=== PATIENT | male | born 1965 | race American Indian/Alaskan Native ===

== ENCOUNTER 2017-01-28 02:57 | Inpatient (IN) | payer OTHER ==
[2017-01-28] MEDS ORDERED: NACL 0.9% 1000 ML 1,000 ML IV ONE ×2 (03:29→05:31)
[2017-01-28 04:29] LABS: Hematocrit 51.1 % (35.5-45.6); Hemoglobin 17.5 gm/dl (11.8-15.2); Mean Corpuscular HGB Conc 34 % (32-34); Mean Corpuscular Hemoglobin 30 pg (28-32); Mean Corpuscular Volume 88 fl (84-94); Platelet Count 207 K/mm3 (140-440); Red Blood Count 5.81 M/mm3 (3.65-5.03); Red Cell Distribution Width 14.5 % (13.2-15.2); White Blood Count 9.7 K/mm3 (4.5-11.0)
[2017-01-28 04:43] LABS: Albumin 4.8 g/dL (3.9-5); BUN/Creatinine Ratio 9.28; Bilirubin,Total 0.5 mg/dL (0.1-1.2); Calcium 9.8 mg/dL (8.4-10.2); Chloride 89.1 mmol/L (98-107); Potassium 3.1 mmol/L (3.6-5.0); Total Protein 9.5 g/dL (6.3-8.2)
[2017-01-28 05:54] LABS: INR 1.05 (0.87-1.13)
[2017-01-28 05:55] LABS: Partial Thromboplastin Time 30.3 Sec. (24.2-36.6)
[2017-01-28] MEDS ORDERED: K-DUR PO ONE (06:15)
[2017-01-28 06:27] LABS: Basophils % (Manual) 0 % (0.0-1.8); Blastocytes % (Manual) 0 %; Diff Status Complete; Eosinophils % (Manual) 0 % (0.0-4.3); Platelet Estimate Consistent w Auto
[2017-01-28] MEDS ORDERED: PROTONIX IV ONE (06:44)
--- NOTE | 2017-01-28 06:44 | Emergency Department Report ---
HPI - General Chief Complaint: Abdominal Pain Time Seen by Provider: 01/28/17 06:14 - HPI HPI: This is a 51-year-old Afro-[place]ipino male who presents to the emergency department from home with complaint of copious diarrhea, black tarry stool, chills, body aches and some generalized weakness that has been going on and getting progressively worse since yesterday. The patient had a fever of 102 yesterday. The says that he was "talking deliriously" but is currently awake and lucid. He denies significant abdominal pain but says that he feels bloated and crampy. He tried some TheraFlu, Pat-[place] and a Imodium A-D without much relief. He does not have any past medical history but also does not have a primary care physician. No recent travel or sick contacts at home. ED Past Medical Hx - Past Medical History Previous Medical History?: No - Surgical History Past Surgical History?: No - Social History Smoking Status: Never Smoker Substance Use Type: None - Medications Home Medications: Home Medications Medication Instructions Recorded Confirmed Last Taken Type No Known Home Medications [No 01/28/17 01/28/17 Unknown History Reported Home Medications] ED Review of Systems ROS: Stated complaint: FEVER/ABD PAIN Other details as noted in HPI Comment: All other systems reviewed and negative Constitutional: denies: chills, fever Eyes: denies: eye pain, eye discharge, vision change ENT: denies: ear pain, throat pain Respiratory: denies: cough, shortness of breath, wheezing Cardiovascular: denies: chest pain, palpitations Gastrointestinal: abdominal pain, nausea, diarrhea, melena Genitourinary: denies: urgency, dysuria Musculoskeletal: denies: back pain, joint swelling, arthralgia Skin: denies: rash, lesions Neurological: denies: headache, weakness, paresthesias Physical Exam - Physical Exam Vital Signs: Vital Signs 01/28/17 01/28/17 03:25 05:28 Temperature 98.7 F Pulse Rate 142 H 133 H Respiratory 22 18 Rate Blood Pressure 147/87 Blood Pressure 114/59 [Right] O2 Sat by Pulse 96 97 Oximetry Physical Exam: GENERAL: The patient is well-developed well-nourished. HEENT: Normocephalic. Atraumatic. Extraocular motions are intact. Patient has moist mucous membranes. Pupils equal reactive to light bilaterally. NECK: Supple. Trachea is midline. CHEST/LUNGS: Clear to auscultation. There is no respiratory distress noted. HEART/CARDIOVASCULAR: Regular. There is mild to moderate tachycardia. There is no gallop rub or murmur. ABDOMEN: Abdomen is soft. Mild tenderness to palpation to the lower quadrants of the abdomen. No guarding rebound tenderness. Patient has normal bowel sounds. There is no abdominal distention. SKIN: Skin is warm and dry. NEURO: The patient is awake, alert, and oriented. The patient is cooperative. The patient has no focal neurologic deficits. The patient has normal speech. MUSCULOSKELETAL: There is no tenderness or deformity. There is no limitation range of motion. There is no evidence of acute injury. ED Course Vital Signs 01/28/17 01/28/17 03:25 05:28 Temperature 98.7 F Pulse Rate 142 H 133 H Respiratory 22 18 Rate Blood Pressure 147/87 Blood Pressure 114/59 [Right] O2 Sat by Pulse 96 97 Oximetry ED Medical Decision Making - Lab Data Result diagrams: 01/28/17 03:40 01/28/17 03:40 - Radiology Data Radiology results: report reviewed Renal ultrasound does not show any acute process. CT of the abdomen and pelvis without contrast shows subtle descending colitis and gastroenteritis. Small fat-containing umbilical hernia with a transverse neck a 1 cm and subadjacent nonobstructive small bowel loop. There is some rectosigmoid fluid. Small left hemipelvic phleboliths. Abdominal x-ray shows increased opacification suggesting ascites. No bowel obstruction. - Medical Decision Making 51-year-old male presents emergency Department with some abdominal discomfort, diarrhea that appeared to be dark stool. Patient presents with some tachycardia but otherwise his vital signs are stable including being afebrile. However he did have a fever Tmax 102 yesterday at home. Rectal exam did not show any hemorrhoids or masses and stool was negative for guaiac. However the patient has multiple abnormal labs but the most concerning is the acute kidney injury and/or renal failure. He says that there is no previous history of any renal insufficiency. Renal ultrasound was done that did not show any acute process. For the abdominal discomfort, a CT of the abdomen and pelvis without contrast was done that shows some subtle acentric colitis and otherwise some incidental findings but otherwise no obstruction or acute processes. He was started on some Zosyn, blood cultures obtained, and the patient will be admitted to the hospital for further evaluation. Patient was accepted for admission by the internal medicine LABORATORY MACHINIST, Thelma. - Differential Diagnosis diverticulitis, colitis, food poisoning, bowel obstruction Critical Care Time: No Critical care attestation.: If time is entered above; I have spent that time in minutes in the direct care of this critically ill patient, excluding procedure time. ED Disposition Clinical Impression: Acute kidney injury, Dehydration, Hyponatremia, Hypokalemia, Colitis Renal failure Qualifiers: Renal failure chronicity: acute Acute renal failure type: unspecified Qualified Code(s): N17.9 - Acute kidney failure, unspecified Diarrhea Qualifiers: Diarrhea type: unspecified type Qualified Code(s): R19.7 - Diarrhea, unspecified Disposition: -09 OP ADMIT IP TO THIS HOSP Is pt being admited?: Yes Condition: Stable Referrals: PRIMARY CARE, [Primary Care Provider] - 3-5 Days Time of Disposition: 11:13
[2017-01-28] MEDS ORDERED: MORPHINE ONE (07:35)
[2017-01-28] MEDS ORDERED: MORPHINE IV ONE (07:36)
--- NOTE | 2017-01-28 08:13 | XRay Report ---
ABDOMEN TWO VIEWS: 01/28/17 06:42:00 CLINICAL: Abdominal pain. COMPARISON:None. FINDINGS: Supine upright views demonstrate a normal bowel gas pattern. No distended bowel and no air-fluid levels. There is increased opacification of the abdomen suggesting ascites. No mass or suspicious calcifications. No tubes or lines. The bones and soft tissues are normal. IMPRESSION: Increased opacification suggesting ascites. No bowel obstruction.
--- NOTE | 2017-01-28 08:16 | Ultrasound Report ---
ULTRASOUND RENAL INDICATION: STEPHEN. COMPARISON: None similar. FINDINGS: Renal sonography suggests top normal renal cortical echogenicity. Grossly preserved contours. No hydronephrosis. Slightly coarse imaged liver. RIGHT KIDNEY measures 9.9 x 4.6 x 5.6 cm with cortical thickness of 1.8 cm. LEFT KIDNEY estimated at 10.7 x 6 x 6.2 cm with cortical thickness of 2.1 cm. URINARY BLADDER suboptimally distended and assessed, though grossly unremarkable, in so far seen. CONCLUSION: No acute renal sonographic abnormality, as described. Thank you for the opportunity to participate in this patient's care.
--- NOTE | 2017-01-28 08:33 | Admit Criteria Form ---
Admission Criteria Documentation: GASTROENTEROLOGY GRG Clinical Indications for Admission to Inpatient Care (Place 'X' for any and all applicable criteria): Hospital admission is needed for appropriate care of the patient because of ANY ONE of the following: [ ]I. Hemoperitoneum(7) [ ]II. Ascites requiring acute treatment indicated by ANY ONE of the following( 8)(9): [ ]a) Hemodynamic instability remaining after emergency or observation level care (as appropriate) [ ]b) Peritoneal signs present (eg, abdominal rigidity, rebound tenderness, absent bowel sounds) [ ]c) Tachypnea, Hypoxemia, or other respiratory symptoms remain after emergency or observation level care (as appropriate) [ ]d) Suspected infected ascites as indicated by ANY ONE of the following: [ ]i) Temperature greater than 100 degrees F (37.8 degrees C) [ ]ii) Abdominal pain or tenderness not relieved by paracentesis [ ]iii) Systemic signs of infection (eg, elevated WBC count, fever) [ ]iv) Ascitic fluid analysis consistent with infection ( eg, elevated WBC count): [ ]v) Vital sign abnormality [ ]III. Suspected acute intra-abdominal process indicated by ANY ONE of the following(1)(2)(3)(4)(5): [ ]a) Hemodynamic instability [ ]b) Peritoneal signs present (eg, abdominal rigidity, rebound tenderness, absent bowel sounds) [ ]c) Bowel obstruction suspected (eg, severe vomiting, abdominal distension) [ ]d) Suspected mesenteric ischemia or ischemic colitis(6) [ ]e) Other signs or symptoms of acute abdominal disease (eg, severe pain, free air): [ ]IV. Severe liver disease indicated by ANY ONE of the following(8)(9)(10)(11)( 12)(13)(14): [ ]a) Acute hepatitis (eg, transaminase level greater than 1000 IU/L) [ ]b) Acute elevation of prothrombin time to more than 50% above normal or INR greater than 1.5 [ ]c) Bilirubin greater than 20 mg/dL (342 micromoles/L) (15) [ ]d) New-onset or worsening hepatic encephalopathy [ ]e) Acute liver necrosis [ ]f) Vomiting or dehydration that is severe of persistent [ ]g) Hemodynamic instability due to liver disease [ ]h) Acute renal failure [ ]i) Hepatic abscess [ ]j) Dehydration that is severe or persistent [ ]k) Hepatic hydrothorax(21) [ ]l) Other indications of severe liver disease (eg, persistent fever , ingestion of hepatotoxin) [ X]V. Severe diarrhea indicated by ANY ONE of the following(17)(18)(19)(20)(21) (22)(23): [ ]a) High fever or other high-risk infection situation [ ]b) Intractable bloody diarrhea (eg, more than 6 bloody stools per day) [ ]c) Suspected Clostridium difficile-associated diarrhea(24) [ ]d) Change in mental status that persists after emergency or observation level care (as appropriate) [X ]e) Severe dehydration (eg, greater than 9% loss of body weight in children) [ ]f) Inability to maintain hydration [ ]g) Peritoneal signs present (eg, abdominal rigidity, rebound tenderness, absent bowel sounds) [ ]h) Abdominal ischemia suspected(6) [ ]i) Hemodynamic instability that persists after emergency or observation level care (as appropriate) [ ]j) Severe electrolyte abnormalities requiring inpatient care [X ]k) Acute renal failure [ ]. Suspected toxic megacolon(5)(6) [ ]VII.Severe dysphagia indicated by ANY ONE of the following(25)(26): [ ]a) Suspected esophageal perforation or fistula(27) [ ]b) Suspected cause that requires inpatient care (eg, caustic ingestion, severe esophagitis) (28) [ ]c) Severe dehydration (eg, greater than 9% loss of body weight in children) [ ]d) Inability to manage secretions or maintain hydration [ ]e) Hemodynamic instability that persists after emergency or observation level care (as appropriate) [ ]f) Severe electrolyte abnormalities requiring inpatient care [ ]g) Acute renal failure [ ]VIII.Vomiting and ANY ONE of the following (29)(30)(31)(32): [ ]a) High fever or other high-risk infection situation [ ]b) Change in mental status that persists after emergency or observation level care (as appropriate) [ ]c) Severe dehydration (e.g., greater than 9% loss of body weight in children) [ ]d) Peritoneal signs present (e.g., abdominal rigidity, rebound tenderness, absent bowel sounds) [ ]e) Hemodynamic instability that persists after emergency or observation level care (as appropriate) [ ]f) Severe electrolyte abnormalities requiring inpatient care [ ]g) Acute renal failure [ ]h) Bowel obstruction suspected (e.g., severe vomiting, abdominal distension) [ ]i) Vomiting that is severe or persistent after medical treatment [ ]IX. Significant dehydration indicated by ANY ONE of the following(23)(24)(25) [ ]a) Clinical findings of severe dehydration indicated by ANY ONE of the following: [ ]i) Acute loss of weight from baseline (5% of body weight in adults, 9% in pediatric patients) [ ]ii) Hemodynamic instability [ ]iii) Acute renal failure [ ]iv) Serum sodium greater than 150 mEq/L (mmol/L) [ ]b) Dehydration that is persistent indicated by ALL of the following: [ ]i) Oral rehydration therapy not tolerated or insufficient to adequately correct dehydration [ ]ii) Appropriate intravenous treatment (eg, fluids) does not readily correct dehydration hours of (ie, after 12 to 24 of treatment) [ ]X. Gastroparesis and ANY ONE of the following(37)(38)(39): [ ]a) Dehydration that is severe or persistent [ ]b) Severe electrolyte abnormalities requiring inpatient care [ ]c) Acute renal failure [ ]d) Vomiting that is severe or persistent [ ]XI. Complications of transplanted liver indicated by ANY ONE of the following (40)(41): [ ]a) Acute graft rejection requiring inpatient management (eg, intravenous immunosuppression)(42) [ ]b) Failure of transplanted liver as indicated by ANY ONE of the following: [ ]i) Acute hepatitis (eg, transaminase level greater than 1000 International Units per liter (IU/L)) [ ]ii) Acute elevation of prothrombin time to more than 50% above baseline or INR greater than 1.5 [ ]iii) Bilirubin greater than 20 mg/dL (342 micromoles/L) [ ]iv) New-onset or worsening hepatic encephalopathy [ ]v) Acute elevation of serum ammonia level (eg, greater than 210 mcg/dL (150 micromoles/L)) [ ]vi) Acute liver necrosis [ ]c) Infection requiring inpatient management (eg, Hemodynamic instability, need for intravenous antimicrobial treatment)(43)(44)(45)(46)(47)(48)(49)(50) [ ]d) Other complication of transplanted liver (eg, thrombosis, autoimmune hepatitis, variceal bleeding) requiring inpatient management(51)(52) [ ]XII Complications of transplanted pancreas indicated by ANY ONE of the following(53): [ ]a) Acute graft rejection requiring inpatient management (eg, intravenous immunosuppression)(42)(54) [ ]b) Failure of transplanted pancreas as indicated by ANY ONE of the following: [ ]i) Serum amylase greater than 3 times the upper limit of normal or baseline [ ]ii) Serum lipase greater than 3 times the upper limit of normal or baseline [ ]iii) Imaging findings consistent with pancreatic inflammation or necrosis [ ]c) Infection requiring inpatient management (eg, Hemodynamic instability, need for intravenous antimicrobial treatment)(43)(44)(45)(46)(47)(48)(49)(50) [ ]d) Other complication of transplanted liver (eg, thrombosis, autoimmune hepatitis, variceal bleeding) requiring inpatient management(51)(52) [ ]X. Gastroenterology condition and ALL of the following: [ ]a) Symptom or finding for which emergency and observation care have failed or are not considered appropriate (Also use General Criteria: Observation Care as appropriate) [ ]b) Presence of ANY ONE of the following: [ ]i) A General Admission Criteria [ ]ii) A Pediatric General Admission Criteria. The original [facility] [employer] content created by [employer] has been revised. The portions of the content which have been revised are identified through the use of italic text or in bold,and [facility] has neither reviewed nor approved the modified material. All other unmodified content is copyright [facility]. Please see references footnoted in the original [facility] edition 2016 Admission Criteria Met: Yes
--- NOTE | 2017-01-28 10:09 | Cat Scan Report ---
CT ABDOMEN AND PELVIS WITHOUT CONTRAST INDICATION: Abdominal pain. COMPARISON: None similar. FINDINGS: Noncontrast abdomen and pelvis CT performed. LUNG BASES: Normal heart size. No effusions. Right hemidiaphragm slightly elevated. Nonspecific distal esophageal wall prominence/thickening, not excluded for gastroesophageal reflux and/or hiatal hernia, amongst others. ABDOMEN: Please note that sensitivity to detect small visceral lesions is limited due to the absence of intravenous or oral contrast. Liver density slightly lesser than the spleen. Otherwise grossly unremarkable unenhanced liver, spleen, gallbladder, pancreas, adrenals, nonaneurysmal abdominal aorta with few atherosclerotic calcifications, IVC and kidneys. No ascites or size significant adenopathy with few small, subcentimeter mesenteric and retroperitoneal lymph nodes. Nonopacified GI tract evaluation limited, though grossly nonobstructive. Normal appendix. Mid to distal small bowel as also colon fluid filled, though not abnormally distended. Subtle proximal ascending colon surrounding fat stranding as on axial images 170-270, series 2. Small fat containing umbilical hernia with a transverse neck of 1 cm and a subjacent nonobstructive small bowel loop. PELVIS: Rectosigmoid fluid. Grossly unremarkable non-opacified urinary bladder and unenhanced seminal vesicles and prostate. Small left hemipelvic phlebolith. No free fluid or significant adenopathy. Approximately 4 mm retrolisthesis of L5 over S1 with degenerative spurring, moderate disc narrowing and mild vacuum disc phenomenon. Additional slight imaged spinal degenerative changes. CONCLUSION: 1. CT appearance may represent subtle ascending colitis and gastroenteritis in an appropriate clinical setting. Please correlate. 2. Few other incidental findings, including normal appendix, as above. Thank you for the opportunity to participate in this patient's care.
[2017-01-28] MEDS ORDERED: ZOSYN/NS 4.5GM/100ML 4.5 GM/100 ML VIAL IV ONE ×2 (10:14→11:35)
[2017-01-28] MEDS ORDERED: MILK OF MAGNESIA PO PRN (11:08)
[2017-01-28] MEDS ORDERED: DULCOLAX PR PRN (11:08)
[2017-01-28] MEDS ORDERED: TYLENOL PO PRN (11:08)
[2017-01-28] MEDS ORDERED: ZOFRAN IV PRN (11:08)
--- NOTE | 2017-01-28 11:32 | History and Physical Report ---
History of Present Illness Date of examination: 01/28/17 Date of admission: 01/28/17 Chief complaint: Abdominal pain and diarrhea History of present illness: 51-year-old -Maltese male with no significant past medical hx who presented to the ED with complaints of black colored copious diarrhea and nausea 4 days. Patient patient is lethargic and is a poor historian. Patient' s Fiancee, reported Pt's symptoms started Thursday with upset stomach, chills, black tarry stool and fever. this was also experinced by a co-worker (they are reconstructing an old home0 Pt got worse yesterday, he was talking and did not make any sense. She also indicated, the patient took TheraFlu flu on Thursday, Imodium A-D twice yesterday and no relief. Pt's fiance reported patient has no significant past medical history except for high cholesterol and he is not on any medication at this time. Past History Past Medical History: No medical history, hyperlipidemia (Pt not on any meds) Past Surgical History: No surgical history Social history: single, lives with family, smoking (Quit smoking cigarettes x 20yrs ago. Smokes marijuana), alcohol abuse (a beer on occasion), full code. denies: prescription drug abuse, IV drug use Family history: stroke (Brother) Medications and Allergies Allergies Allergy/AdvReac Type Severity Reaction Status Date / Time No Known Allergies Allergy Verified 01/28/17 03:29 Home Medications Medication Instructions Recorded Confirmed Last Taken Type No Known Home Medications [No 01/28/17 01/28/17 Unknown History Reported Home Medications] Active Meds: Active Medications Acetaminophen (Tylenol) 650 mg PO Q4H PRN PRN Reason: Pain MILD(1-3)/Fever >100.5/MILLER Bisacodyl (Dulcolax) 10 mg [place] QDAY PRN PRN Reason: Constipation unrelieved by MOM Sodium Chloride (Nacl 0.9% 1000 Ml) 1,000 mls @ 100 mls/hr IV DIRECT BERTHA Magnesium Hydroxide (Milk Of Magnesia) 30 ml PO Q4H PRN PRN Reason: Constipation Ondansetron HCl (Zofran) 4 mg IV Q8H PRN PRN Reason: N/V unrelieved by Reglan Review of Systems ROS unobtainable: due to mental status (Pt's alexandre provided information) Constitutional: no weight loss, no weight gain, no fever, no chills Ears, nose, mouth and throat: nasal congestion, headache Respiratory: no cough Gastrointestinal: nausea, diarrhea (black stool per pt's Fiancee), no vomiting, no constipation Genitourinary Male: no hematuria Integumentary: no sores, no wounds Exam - Constitutional Vitals: Temp Pulse Resp BP Pulse Ox 98.7 F 122 H 15 113/70 99 01/28/17 03:25 01/28/17 09:02 01/28/17 09:02 01/28/17 09:02 01/28/17 09:02 General appearance: Present: mild distress - EENT Eyes: Present: PERRL ENT: hearing intact, clear oral mucosa - Neck Neck: Present: supple, normal ROM - Respiratory Respiratory effort: normal Respiratory: bilateral: CTA - Cardiovascular Rhythm: regular Heart Sounds: Present: S1 & S2. Absent: rub, click - Extremities Extremities: pulses symmetrical, No edema Peripheral Pulses: within normal limits - Abdominal General gastrointestinal: Present: soft, non-tender, non-distended, hypoactive bowel sounds Male genitourinary: Present: normal - Integumentary Integumentary: Present: warm, dry - Musculoskeletal Musculoskeletal: generalized weakness - Psychiatric Psychiatric: other (Lethargic) - Neurologic Neurologic: moves all extremities - Allied Health Allied health notes reviewed: nursing Results - Labs CBC & Chem 7: 01/28/17 15:14 01/28/17 15:14 Labs: Laboratory Last Values WBC 9.7 K/mm3 (4.5-11.0) 01/28/17 03:40 RBC 5.81 M/mm3 (3.65-5.03) H 01/28/17 03:40 Hgb 17.5 gm/dl (11.8-15.2) H 01/28/17 03:40 Hct 51.1 % (35.5-45.6) H 01/28/17 03:40 MCV 88 fl (84-94) 01/28/17 03:40 MCH 30 pg (28-32) 01/28/17 03:40 MCHC 34 % (32-34) 01/28/17 03:40 RDW 14.5 % (13.2-15.2) 01/28/17 03:40 Plt Count 207 K/mm3 (140-440) 01/28/17 03:40 Add Manual Diff Complete 01/28/17 03:40 Total Counted 100 01/28/17 03:40 Seg Neuts % (Manual) 34.0 % (40.0-70.0) L 01/28/17 03:40 Band Neutrophils % 30.0 % 01/28/17 03:40 Lymphocytes % (Manual) 24.0 % (13.4-35.0) 01/28/17 03:40 Reactive Lymphs % (Man) 1.0 % 01/28/17 03:40 Monocytes % (Manual) 11.0 % (0.0-7.3) H 01/28/17 03:40 Eosinophils % (Manual) 0 % (0.0-4.3) 01/28/17 03:40 Basophils % (Manual) 0 % (0.0-1.8) 01/28/17 03:40 Metamyelocytes % 0 % 01/28/17 03:40 Myelocytes % 0 % 01/28/17 03:40 Promyelocytes % 0 % 01/28/17 03:40 Blast Cells % 0 % 01/28/17 03:40 Nucleated RBC % Not Reportable 01/28/17 03:40 Seg Neutrophils # Man 3.3 K/mm3 (1.8-7.7) 01/28/17 03:40 Band Neutrophils # 2.9 K/mm3 01/28/17 03:40 Lymphocytes # (Manual) 2.3 K/mm3 (1.2-5.4) 01/28/17 03:40 Abs React Lymphs (Man) 0.1 K/mm3 01/28/17 03:40 Monocytes # (Manual) 1.1 K/mm3 (0.0-0.8) H 01/28/17 03:40 Eosinophils # (Manual) 0.0 K/mm3 (0.0-0.4) 01/28/17 03:40 Basophils # (Manual) 0.0 K/mm3 (0.0-0.1) 01/28/17 03:40 Metamyelocytes # 0.0 K/mm3 01/28/17 03:40 Myelocytes # 0.0 K/mm3 01/28/17 03:40 Promyelocytes # 0.0 K/mm3 01/28/17 03:40 Blast Cells # 0.0 K/mm3 01/28/17 03:40 WBC Morphology Not Reportable 01/28/17 03:40 Hypersegmented Neuts Not Reportable 01/28/17 03:40 Hyposegmented Neuts Not Reportable 01/28/17 03:40 Hypogranular Neuts Not Reportable 01/28/17 03:40 Smudge Cells Not Reportable 01/28/17 03:40 Toxic Granulation Not Reportable 01/28/17 03:40 Toxic Vacuolation Not Reportable 01/28/17 03:40 Dohle Bodies Not Reportable 01/28/17 03:40 Pelger-Huet Anomaly Not Reportable 01/28/17 03:40 Michel Rods Not Reportable 01/28/17 03:40 Platelet Estimate Consistent w auto 01/28/17 03:40 Clumped Platelets Not Reportable 01/28/17 03:40 Plt Clumps, EDTA Not Reportable 01/28/17 03:40 Large Platelets Not Reportable 01/28/17 03:40 Giant Platelets Not Reportable 01/28/17 03:40 Platelet Satelliting Not Reportable 01/28/17 03:40 Plt Morphology Comment Not Reportable 01/28/17 03:40 RBC Morphology Not Reportable 01/28/17 03:40 Dimorphic RBCs Not Reportable 01/28/17 03:40 Polychromasia Not Reportable 01/28/17 03:40 Hypochromasia Not Reportable 01/28/17 03:40 Poikilocytosis Not Reportable 01/28/17 03:40 Anisocytosis Not Reportable 01/28/17 03:40 Microcytosis Not Reportable 01/28/17 03:40 Macrocytosis Not Reportable 01/28/17 03:40 Spherocytes Not Reportable 01/28/17 03:40 Pappenheimer Bodies Not Reportable 01/28/17 03:40 Sickle Cells Not Reportable 01/28/17 03:40 Target Cells Not Reportable 01/28/17 03:40 Tear Drop Cells Not Reportable 01/28/17 03:40 Ovalocytes Not Reportable 01/28/17 03:40 Helmet Cells Not Reportable 01/28/17 03:40 Lopez-Wagoner Bodies Not Reportable 01/28/17 03:40 [place] Rings Not Reportable 01/28/17 03:40 [place] Cells Not Reportable 01/28/17 03:40 Bite Cells Not Reportable 01/28/17 03:40 Crenated Cell Not Reportable 01/28/17 03:40 Elliptocytes Not Reportable 01/28/17 03:40 Acanthocytes (Spur) Not Reportable 01/28/17 03:40 Rouleaux Not Reportable 01/28/17 03:40 Hemoglobin C Crystals Not Reportable 01/28/17 03:40 Schistocytes Not Reportable 01/28/17 03:40 Malaria parasites Not Reportable 01/28/17 03:40 Anant Bodies Not Reportable 01/28/17 03:40 Hem Pathologist Commnt No 01/28/17 03:40 PT 13.6 Sec. (12.2-14.9) 01/28/17 03:40 INR 1.05 (0.87-1.13) 01/28/17 03:40 APTT 30.3 Sec. (24.2-36.6) 01/28/17 03:40 Sodium 129 mmol/L (137-145) L 01/28/17 03:40 Potassium 3.1 mmol/L (3.6-5.0) L 01/28/17 03:40 Chloride 89.1 mmol/L (98-107) L 01/28/17 03:40 Carbon Dioxide 16 mmol/L (22-30) L 01/28/17 03:40 Anion Gap 27 mmol/L 01/28/17 03:40 BUN 26 mg/dL (9-20) H 01/28/17 03:40 Creatinine 2.8 mg/dL (0.8-1.5) H 01/28/17 03:40 Estimated GFR 29 ml/min 01/28/17 03:40 BUN/Creatinine Ratio 9.28 % 01/28/17 03:40 Glucose 138 mg/dL (75-100) H 01/28/17 03:40 Calcium 9.8 mg/dL (8.4-10.2) 01/28/17 03:40 Total Bilirubin 0.50 mg/dL (0.1-1.2) 01/28/17 03:40 AST 31 units/L (5-40) 01/28/17 03:40 ALT 28 units/L (7-56) 01/28/17 03:40 Alkaline Phosphatase 72 units/L (35-129) 01/28/17 03:40 Total Protein 9.5 g/dL (6.3-8.2) H 01/28/17 03:40 Albumin 4.8 g/dL (3.9-5) 01/28/17 03:40 Albumin/Globulin Ratio 1.0 % 01/28/17 03:40 Lipase 36 units/L (13-60) 01/28/17 03:40 Blood Type B POSITIVE 01/28/17 03:40 Antibody Screen TNR 01/28/17 03:40 ZEENAT Antibody Screen Negative 01/28/17 03:40 - Imaging and Cardiology EKG: image reviewed (Showed Sinus Tach) CT scan - abdomen: image reviewed (ascending colitis) Assessment and Plan Assessment and plan: 51-year-old -Maltese male presented to the ED with complaints of black colored copious diarrhea and nausea 4 days. Patient patient is lethargic and is a poor historian. Patient's Fiancee, reported Pt's symptoms started Thursday with upset stomach, chills, black tarry stool and fever. Pt got worse yesterday , he was talking and did not make any sense. She also indicated, the patient took TheraFlu flu on Thursday, Imodium A-D twice yesterday and no relief. Pt's fiance reported patient has no significant past medical history except for high cholesterol and he is not on any medication at this time. On exam, patient denies chest pain. 1. Metabolic encephalopathy- resolved secondary to Acute GI bleed and acute kidney injury- treat underlying causes 2. Abdominal pain, POSSIBLE COLITIS, WILL START ON FLUIDS, CHECK STOOL FOR C.DIFF. START EMPIRICALLY ON FLAGYL 3. Acute GI bleed-consult GI, serial H/H, IV Protonix ordered, transfuse PRBC when necessary 4. Acute renal failure stage III-due to vasomotor nephropathy, consult nephrology 5. Dehydration- continuous IV fluids hydration and follow up with labs 6. Hypokalemia- replete potassium to maintain approximate 4.0, follow up with Potassium and Mg level 7. Hyponatremia- normal saline IV fluids ordered 8. Diarrhea- stool to rule out C. difficile, follow-up with labs to maintain electrolytes balance 9. DVT prophylaxis- SCDs ordered PLAN DISCUSSED WITH PATIENT AND SPOUSE Advance Directives: No (Full code) VTE prophylaxis?: Mechanical Contraindication Mechanical VTE Prophylaxis: Contraindicated Reason for no VTE Prophylaxis: Bleeding Plan of care discussed with patient/family: Yes
--- NOTE | 2017-01-28 13:07 | Gastroenterology Consultation ---
History of Present Illness - Reason for Consult Consult date: 01/28/17 Requesting physician: CARMEN MILLER - History of Present Illness The patient is a 51-year-old man with no prior problems who felt well until days ago when he began having severe diarrhea, high fevers, abdominal cramping and nausea with vomiting. His emesis was bilious although he reports having dark stools. The patient's girlfriend states that he was delirious yesterday with fevers. His stool was Hemoccult negative on ER evaluation. Consultation was requested for possible GI bleeding given the patient's history. He has acute renal failure and a hemoglobin of 17.5. The patient reports fast food on the day that the symptoms began and reports that another individual eating from the same restaurant and working with him became ill. He had a colonoscopy 4 years ago which he reports was normal. He does not see a physician regularly and is on no routine medications. He was taking [place] to help with his symptoms. He did not use Pepto-Bismol and does not take iron. Past History Past Medical History: No medical history Past Surgical History: No surgical history Social history: single. denies: smoking, alcohol abuse Family history: no significant family history Medications and Allergies Allergies Allergy/AdvReac Type Severity Reaction Status Date / Time No Known Allergies Allergy Verified 01/28/17 03:29 Home Medications Medication Instructions Recorded Confirmed Last Taken Type No Known Home Medications [No 01/28/17 01/28/17 Unknown History Reported Home Medications] Active Meds: Active Medications Acetaminophen (Tylenol) 650 mg PO Q4H PRN PRN Reason: Pain MILD(1-3)/Fever >100.5/MILLER Bisacodyl (Dulcolax) 10 mg [place] QDAY PRN PRN Reason: Constipation unrelieved by [facility] Sodium Chloride (Nacl 0.9% 1000 Ml) 1,000 mls @ 100 mls/hr IV DIRECT BERTHA Magnesium Hydroxide (Milk Of Magnesia) 30 ml PO Q4H PRN PRN Reason: Constipation Ondansetron HCl (Zofran) 4 mg IV Q8H PRN PRN Reason: N/V unrelieved by Reglan Pneumococcal Polyvalent Vaccine (Pneumovax 23) 0.5 ml IM .ONCE ONE Stop: 01/29/17 12:01 Review of Systems - Review of Systems Constitutional: fever, chills, weakness, no weight loss, no weight gain Eyes: no change in vision, no pain Ears, Nose, Throat: no decreased hearing, no epistaxis Breasts: deferred Cardiovascular: no chest pain, no rapid/irregular heart beat, no shortness of breath, no syncope Respiratory: no cough, no shortness of breath, no wheezing, no home oxygen Gastrointestinal: abdominal pain, nausea, vomiting, diarrhea, melena, no constipation, no hematemesis, no coffee ground emesis Rectal: pain Male Genitourinary: deferred Musculoskeletal: no gait dysfunction, no joint pain, no muscle pain Integumentary: no rash, no pruritis, no jaundice Psychiatric: no anxiety, no memory loss Endocrine: no cold intolerance, no heat intolerance Hematologic/Lymphatic: no easy bruising, no easy bleeding Allergic/Immunologic: no wheezing, no angioedema Exam - Constitutional Vital Signs: Temp Pulse Resp BP Pulse Ox 98.7 F 122 H 14 113/70 99 01/28/17 03:25 01/28/17 09:02 01/28/17 11:29 01/28/17 11:29 01/28/17 09:02 General appearance: no acute distress, well-nourished - EENT Eyes: PERRL ENT: hearing intact, clear oral mucosa, dentition normal - Neck Neck: supple, normal ROM, no masses or JVD - Respiratory Respiratory effort: normal Respiratory: bilateral: CTA - Breasts Breasts: deferred - Cardiovascular Rhythm: regular Heart Sounds: Present: S1 & S2. Absent: gallop, rub Extremities: pulses intact, No edema, normal color, Full ROM - Gastrointestinal General gastrointestinal: Present: soft, non-tender, non-distended. Absent: hepatomegaly, splenomegaly, mass Rectal Exam: deferred - Genitourinary Male Genitourinary: deferred - Integumentary Integumentary: Present: clear, warm, dry - Neurologic Neurological: alert and oriented x3 - Psychiatric Psychiatric: appropriate mood/affect, intact judgment & insight, memory intact - Labs CBC & Chem 7: 01/28/17 03:40 01/28/17 03:40 Assessment and Plan - Patient Problems (1) Acute gastroenteritis Current Visit: Yes Status: Acute Plan to address problem: The patient appears to have a severe acute gastroenteritis associated with profound dehydration. His nausea has resolved and he is requesting fluids. There is no significant bleeding evident. The stool is Hemoccult negative and his hemoglobin is 17.5. Endoscopy can be safely deferred and the patient will be observed. Stool cultures and C. difficile toxin will be ordered. Supportive care otherwise. Thank you very much for asking me to see Mr. Hernandez in consultation (2) Colitis Current Visit: Yes Status: Acute (3) Dehydration Current Visit: Yes Status: Acute (4) Diarrhea Current Visit: Yes Status: Acute Qualifiers: Diarrhea type: unspecified type Qualified Code(s): R19.7 - Diarrhea, unspecified (5) Hyponatremia Current Visit: Yes Status: Acute (6) Renal failure Current Visit: Yes Status: Acute Qualifiers: Renal failure chronicity: acute Acute renal failure type: unspecified Chronic kidney disease stage: C Qualified Code(s): N17.9 - Acute kidney failure, unspecified
[2017-01-28] MEDS ORDERED: D50W (25GM) IV PRN (15:14)
[2017-01-28] MEDS: NACL 0.9% 1000 ML 1,000 ML IV SCH (15:15)
[2017-01-28 15:25] LABS: Hemoglobin 16.3 gm/dl (11.8-15.2)
[2017-01-28] MEDS: FLAGYL PO SCH ×2 (15:42→21:30)
[2017-01-28 15:46] LABS: BUN/Creatinine Ratio 11.66; Calcium 8.9 mg/dL (8.4-10.2); Chloride 93.6 mmol/L (98-107); Potassium 3.1 mmol/L (3.6-5.0)
[2017-01-28] MEDS ORDERED: NOVOLOG SUB-Q SCH (16:30)
[2017-01-28 16:44] LABS: Bacteria,Urine 3+ /HPF (Negative); Bilirubin,Urine MOD (Negative); Blood,Urine LG (Negative); Ketones,Urine NEG (Negative); Leukocyte Esterase,Urine LG (Negative); Mucus,Urine 3+ /HPF; Nitrite,Urine POS (Negative); Urobilinogen,Urine < 2.0 mg/dL (<2.0)
[2017-01-28 16:45] LABS: RBC,Urine > 182.0 /HPF (0.0-6.0)
[2017-01-29] MEDS: NACL 0.9% 1000 ML 1,000 ML IV SCH ×3 (04:13→22:28)
[2017-01-29] MEDS: FLAGYL PO SCH ×3 (06:12→22:28)
[2017-01-29 07:33] LABS: Hematocrit 49.1 % (35.5-45.6); Hemoglobin 16.7 gm/dl (11.8-15.2); Mean Corpuscular HGB Conc 34 % (32-34); Mean Corpuscular Hemoglobin 30 pg (28-32); Mean Corpuscular Volume 89 fl (84-94); Platelet Count 172 K/mm3 (140-440); Red Blood Count 5.52 M/mm3 (3.65-5.03); Red Cell Distribution Width 14.3 % (13.2-15.2); White Blood Count 6.6 K/mm3 (4.5-11.0)
[2017-01-29 07:39] LABS: BUN/Creatinine Ratio 16.31; Calcium 8.8 mg/dL (8.4-10.2); Chloride 99.3 mmol/L (98-107); Potassium 3.2 mmol/L (3.6-5.0)
[2017-01-29 09:28] LABS: Basophils % (Manual) 0 % (0.0-1.8); Blastocytes % (Manual) 0 %; Eosinophils % (Manual) 0 % (0.0-4.3)
[2017-01-29 09:29] LABS: Diff Status Complete; RBC Morphology Normal
[2017-01-29] MEDS ORDERED: PROTONIX IV SCH (10:00)
[2017-01-29] MEDS ORDERED: PNEUMOVAX 23 IM ONE (12:00)
--- NOTE | 2017-01-29 12:02 | Progress Note ---
Assessment and Plan Assessment and plan: Patient is a 51-year-old man w/o any chronic medical problems who presents with nausea and diarrhea. CT abdomen and pelvis without contrast reported as subtle ascending colitis and gastroenteritis in an appropriate clinical setting, please correlate, with few other incidential findings... -Sepsis due to colitis, present on admission: Blood culture pending, GI following, on flagyl, given iv zosyn in ED on admission -UTI, present on admission: Added urine culture but he was already started on antibiotics, add sq levaquin -Diarrhea: C. difficile pending, I spoke to the lab who never got the sample yesterday then I spoke with nursing to re-collect -ARF, renal tubule stasis, poa, improved, cr went from 2.4 to 1.9: continue to monitor -Hypokalemia due to diarrhea: Replace and monitor closely -DVT prophylaxis: added sq heparin History Interval history: Patient seen and examined. Follow up on diarrhea which is still present. Overnight uneventful. No cp, sob, n/v or severe headaches. Imaging, old records , testing, labs, nursing notes reviewed. Hospitalist Physical - Physical exam Narrative exam: GEN: WDWN, NAD, AWAKE, ALERT, ORIENTATED x 3 HEENT: NCAT, PERRL, EOMI, OP CLEAR NECK: SUPPLE, NO THYROMEGALY, NO JVD, NO LAD CVS: Regular tachycardia, NORMAL S1S2 LUNGS/CHEST: CTA B, NORMAL CHEST EXPANSION B, GOOD AIR ENTRY B ABD: SOFT, NTND, GBS, NO REBOUND OR GUARDING MSK: FROM X 4 EXTREMITIES NEURO: CN 2-12 GROSSLY INTACT, NO FOCAL DEFICITS PSY: CALM - Constitutional Vitals: Temp Pulse Resp BP Pulse Ox 98.6 F 101 H 20 118/81 98 01/29/17 05:07 01/29/17 08:16 01/29/17 10:00 01/29/17 05:07 01/29/17 10:00 General appearance: Absent: mild distress Results - Labs CBC & Chem 7: 01/29/17 07:03 01/29/17 07:03 Labs: Laboratory Last Values WBC 6.6 K/mm3 (4.5-11.0) 01/29/17 07:03 RBC 5.52 M/mm3 (3.65-5.03) H 01/29/17 07:03 Hgb 16.7 gm/dl (11.8-15.2) H 01/29/17 07:03 Hct 49.1 % (35.5-45.6) H 01/29/17 07:03 MCV 89 fl (84-94) 01/29/17 07:03 MCH 30 pg (28-32) 01/29/17 07:03 MCHC 34 % (32-34) 01/29/17 07:03 RDW 14.3 % (13.2-15.2) 01/29/17 07:03 Plt Count 172 K/mm3 (140-440) 01/29/17 07:03 [place] % (Auto) Sales Administration Specialist 01/29/17 07:03 Add Manual Diff Complete 01/29/17 07:03 Total Counted 100 01/29/17 07:03 Seg Neuts % (Manual) 11.0 % (40.0-70.0) L 01/29/17 07:03 Band Neutrophils % 50.0 % 01/29/17 07:03 Lymphocytes % (Manual) 25.0 % (13.4-35.0) 01/29/17 07:03 Reactive Lymphs % (Man) 0 % 01/29/17 07:03 Monocytes % (Manual) 14.0 % (0.0-7.3) H 01/29/17 07:03 Eosinophils % (Manual) 0 % (0.0-4.3) 01/29/17 07:03 Basophils % (Manual) 0 % (0.0-1.8) 01/29/17 07:03 Metamyelocytes % 0 % 01/29/17 07:03 Myelocytes % 0 % 01/29/17 07:03 Promyelocytes % 0 % 01/29/17 07:03 Blast Cells % 0 % 01/29/17 07:03 Nucleated RBC % Not Reportable 01/29/17 07:03 Seg Neutrophils # Man 0.7 K/mm3 (1.8-7.7) L 01/29/17 07:03 Band Neutrophils # 3.3 K/mm3 01/29/17 07:03 Lymphocytes # (Manual) 1.7 K/mm3 (1.2-5.4) 01/29/17 07:03 Abs React Lymphs (Man) 0.0 K/mm3 01/29/17 07:03 Monocytes # (Manual) 0.9 K/mm3 (0.0-0.8) H 01/29/17 07:03 Eosinophils # (Manual) 0.0 K/mm3 (0.0-0.4) 01/29/17 07:03 Basophils # (Manual) 0.0 K/mm3 (0.0-0.1) 01/29/17 07:03 Metamyelocytes # 0.0 K/mm3 01/29/17 07:03 Myelocytes # 0.0 K/mm3 01/29/17 07:03 Promyelocytes # 0.0 K/mm3 01/29/17 07:03 Blast Cells # 0.0 K/mm3 01/29/17 07:03 WBC Morphology Not Reportable 01/29/17 07:03 Hypersegmented Neuts Not Reportable 01/29/17 07:03 Hyposegmented Neuts Not Reportable 01/29/17 07:03 Hypogranular Neuts Not Reportable 01/29/17 07:03 Smudge Cells Not Reportable 01/29/17 07:03 Toxic Granulation Not Reportable 01/29/17 07:03 Toxic Vacuolation Not Reportable 01/29/17 07:03 Dohle Bodies Not Reportable 01/29/17 07:03 Pelger-Huet Anomaly Not Reportable 01/29/17 07:03 Michel Rods Not Reportable 01/29/17 07:03 Platelet Estimate Appears normal 01/29/17 07:03 Clumped Platelets Not Reportable 01/29/17 07:03 Plt Clumps, EDTA Not Reportable 01/29/17 07:03 Large Platelets Not Reportable 01/29/17 07:03 Giant Platelets Not Reportable 01/29/17 07:03 Platelet Satelliting Not Reportable 01/29/17 07:03 Plt Morphology Comment Not Reportable 01/29/17 07:03 RBC Morphology Normal 01/29/17 07:03 Dimorphic RBCs Not Reportable 01/29/17 07:03 Polychromasia Not Reportable 01/29/17 07:03 Hypochromasia Not Reportable 01/29/17 07:03 Poikilocytosis Not Reportable 01/29/17 07:03 Anisocytosis Not Reportable 01/29/17 07:03 Microcytosis Not Reportable 01/29/17 07:03 Macrocytosis Not Reportable 01/29/17 07:03 Spherocytes Not Reportable 01/29/17 07:03 Pappenheimer Bodies Not Reportable 01/29/17 07:03 Sickle Cells Not Reportable 01/29/17 07:03 Target Cells Not Reportable 01/29/17 07:03 Tear Drop Cells Not Reportable 01/29/17 07:03 Ovalocytes Not Reportable 01/29/17 07:03 Helmet Cells Not Reportable 01/29/17 07:03 Lopez-Simms Bodies Not Reportable 01/29/17 07:03 [place] Rings Not Reportable 01/29/17 07:03 Rad Cells Not Reportable 01/29/17 07:03 Bite Cells Not Reportable 01/29/17 07:03 Crenated Cell Not Reportable 01/29/17 07:03 Elliptocytes Not Reportable 01/29/17 07:03 Acanthocytes (Spur) Not Reportable 01/29/17 07:03 Rouleaux Not Reportable 01/29/17 07:03 Hemoglobin C Crystals Not Reportable 01/29/17 07:03 Schistocytes Not Reportable 01/29/17 07:03 Malaria parasites Not Reportable 01/29/17 07:03 Anant Bodies Not Reportable 01/29/17 07:03 Hem Pathologist Commnt No 01/29/17 07:03 PT 13.6 Sec. (12.2-14.9) 01/28/17 03:40 INR 1.05 (0.87-1.13) 01/28/17 03:40 APTT 30.3 Sec. (24.2-36.6) 01/28/17 03:40 Sodium 135 mmol/L (137-145) L 01/29/17 07:03 Potassium 3.2 mmol/L (3.6-5.0) L 01/29/17 07:03 Chloride 99.3 mmol/L (98-107) 01/29/17 07:03 Carbon Dioxide 18 mmol/L (22-30) L 01/29/17 07:03 Anion Gap 21 mmol/L 01/29/17 07:03 BUN 31 mg/dL (9-20) H 01/29/17 07:03 Creatinine 1.9 mg/dL (0.8-1.5) H 01/29/17 07:03 Estimated GFR 45 ml/min 01/29/17 07:03 BUN/Creatinine Ratio 16.31 % 01/29/17 07:03 Glucose 106 mg/dL (75-100) H 01/29/17 07:03 POC Glucose 152 (70-105) H 01/28/17 17:51 Hemoglobin A1c 5.8 % (4-6) 01/28/17 15:14 Lactic Acid 1.60 mmol/L (0.7-2.0) 01/28/17 18:18 Calcium 8.8 mg/dL (8.4-10.2) 01/29/17 07:03 Magnesium 2.00 mg/dL (1.7-2.3) 01/28/17 15:14 Total Bilirubin 0.50 mg/dL (0.1-1.2) 01/28/17 03:40 AST 31 units/L (5-40) 01/28/17 03:40 ALT 28 units/L (7-56) 01/28/17 03:40 Alkaline Phosphatase 72 units/L (35-129) 01/28/17 03:40 Total Protein 9.5 g/dL (6.3-8.2) H 01/28/17 03:40 Albumin 4.8 g/dL (3.9-5) 01/28/17 03:40 Albumin/Globulin Ratio 1.0 % 01/28/17 03:40 Lipase 36 units/L (13-60) 01/28/17 03:40 Urine Color [place] (Yellow) 01/28/17 16:00 Urine Turbidity Cloudy (Clear) 01/28/17 16:00 Urine pH 8.0 (5.0-7.0) H 01/28/17 16:00 Ur Specific [place] 1.011 (1.003-1.030) 01/28/17 16:00 Urine Protein 100 mg/dl mg/dL (Negative) 01/28/17 16:00 Urine Glucose (UA) Neg mg/dL (Negative) 01/28/17 16:00 Urine Ketones Neg mg/dL (Negative) 01/28/17 16:00 Urine Blood Lg (Negative) 01/28/17 16:00 Urine Nitrite Pos (Negative) 01/28/17 16:00 Urine Bilirubin Mod (Negative) 01/28/17 16:00 Urine Ictotest Positive (Negative) 01/28/17 16:00 Urine Urobilinogen < 2.0 mg/dL (<2.0) 01/28/17 16:00 Ur Leukocyte Esterase Lg (Negative) 01/28/17 16:00 Urine WBC (Auto) 40.0 /HPF (0.0-6.0) H 01/28/17 16:00 Urine RBC (Auto) > 182.0 /HPF (0.0-6.0) 01/28/17 16:00 U Epithel Cells (Auto) 2.0 /HPF (0-13.0) 01/28/17 16:00 Urine Bacteria (Auto) 3+ /HPF (Negative) 01/28/17 16:00 Urine Mucus 3+ /HPF 01/28/17 16:00 Blood Type B POSITIVE 01/28/17 03:40 Antibody Screen TNR 01/28/17 03:40 ZEENAT Antibody Screen Negative 01/28/17 03:40
[2017-01-29] MEDS ORDERED: REGLAN IV PRN (12:12)
[2017-01-29] MEDS ORDERED: K-DUR PO ONE (12:14)
[2017-01-29] MEDS ORDERED: POTASSIUM CHLORIDE PO ONE (12:49)
--- NOTE | 2017-01-29 16:44 | Gastroenterology Progress Note ---
Assessment and Plan GI: probable gastroenteritis w/ signs improvement - advance diet to soft - awaiting stool vx's - if stable in am ok to d/c from GI standpoint - no plans to scope at this time - will follow for now Subjective Date of service: 01/29/17 Interval history: - pt reports diarrhea improving, tolerating clear liquid diet Objective - Constitutional Vitals: Temp Pulse Resp BP Pulse Ox 98.3 F 90 20 102/61 98 01/29/17 08:50 01/29/17 08:50 01/29/17 10:00 01/29/17 08:50 01/29/17 10:00 General appearance: no acute distress - Respiratory Respiratory: bilateral: CTA - Cardiovascular Rhythm: regular Heart Sounds: Present: S1 & S2 - Gastrointestinal General gastrointestinal: Present: soft, non-tender - Labs CBC & Chem 7: 01/29/17 07:03 01/29/17 07:03 Labs: Laboratory Results - last 24 hr 01/28/17 01/28/17 01/28/17 16:00 17:51 18:18 WBC RBC Hgb Hct MCV MCH MCHC RDW Plt Count [place] % (Auto) Add Manual Diff Total Counted Seg Neuts % (Manual) Band Neutrophils % Lymphocytes % (Manual) Reactive Lymphs % (Man) Monocytes % (Manual) Eosinophils % (Manual) Basophils % (Manual) Metamyelocytes % Myelocytes % Promyelocytes % Blast Cells % Nucleated RBC % Seg Neutrophils # Man Band Neutrophils # Lymphocytes # (Manual) Abs React Lymphs (Man) Monocytes # (Manual) Eosinophils # (Manual) Basophils # (Manual) Metamyelocytes # Myelocytes # Promyelocytes # Blast Cells # WBC Morphology Hypersegmented Neuts Hyposegmented Neuts Hypogranular Neuts Smudge Cells Toxic Granulation Toxic Vacuolation Dohle Bodies Pelger-Huet Anomaly Michel Rods Platelet Estimate Clumped Platelets Plt Clumps, EDTA Large Platelets Giant Platelets Platelet Satelliting Plt Morphology Comment RBC Morphology Dimorphic RBCs Polychromasia Hypochromasia Poikilocytosis Anisocytosis Microcytosis Macrocytosis Spherocytes Pappenheimer Bodies Sickle Cells Target Cells Tear Drop Cells Ovalocytes Helmet Cells Lopez-Cec[place] Bodies [place] Rings [place] Cells Bite Cells Crenated Cell Elliptocytes Acanthocytes (Spur) Rouleaux Hemoglobin C Crystals Schistocytes Malaria parasites Anant Bodies Hem Pathologist Commnt Sodium Potassium Chloride Carbon Dioxide Anion Gap BUN Creatinine Estimated GFR BUN/Creatinine Ratio Glucose POC Glucose 152 H Lactic Acid 1.60 Calcium Urine Color [place] Urine Turbidity Cloudy Urine pH 8.0 H Ur Specific [place] 1.011 Urine Protein 100 mg/dl Urine Glucose (UA) Neg Urine Ketones Neg Urine Blood Lg Urine Nitrite Pos Urine Bilirubin Mod Urine Ictotest Positive Urine Urobilinogen < 2.0 Ur Leukocyte Esterase Lg Urine WBC (Auto) 40.0 H Urine RBC (Auto) > 182.0 U Epithel Cells (Auto) 2.0 Urine Bacteria (Auto) 3+ Urine Mucus 3+ 01/29/17 01/29/17 01/29/17 07:03 07:03 12:22 WBC 6.6 RBC 5.52 H Hgb 16.7 H Hct 49.1 H MCV 89 MCH 30 MCHC 34 RDW 14.3 Plt Count 172 [place] % (Auto) Strap Setter Add Manual Diff Complete Total Counted 100 Seg Neuts % (Manual) 11.0 L Band Neutrophils % 50.0 Lymphocytes % (Manual) 25.0 Reactive Lymphs % (Man) 0 Monocytes % (Manual) 14.0 H Eosinophils % (Manual) 0 Basophils % (Manual) 0 Metamyelocytes % 0 Myelocytes % 0 Promyelocytes % 0 Blast Cells % 0 Nucleated RBC % Not Reportable Seg Neutrophils # Man 0.7 L Band Neutrophils # 3.3 Lymphocytes # (Manual) 1.7 Abs React Lymphs (Man) 0.0 Monocytes # (Manual) 0.9 H Eosinophils # (Manual) 0.0 Basophils # (Manual) 0.0 Metamyelocytes # 0.0 Myelocytes # 0.0 Promyelocytes # 0.0 Blast Cells # 0.0 WBC Morphology Not Reportable Hypersegmented Neuts Not Reportable Hyposegmented Neuts Not Reportable Hypogranular Neuts Not Reportable Smudge Cells Not Reportable Toxic Granulation Not Reportable Toxic Vacuolation Not Reportable Dohle Bodies Not Reportable Pelger-Huet Anomaly Not Reportable Michel Rods Not Reportable Platelet Estimate Appears normal Clumped Platelets Not Reportable Plt Clumps, EDTA Not Reportable Large Platelets Not Reportable Giant Platelets Not Reportable Platelet Satelliting Not Reportable Plt Morphology Comment Not Reportable RBC Morphology Normal Dimorphic RBCs Not Reportable Polychromasia Not Reportable Hypochromasia Not Reportable Poikilocytosis Not Reportable Anisocytosis Not Reportable Microcytosis Not Reportable Macrocytosis Not Reportable Spherocytes Not Reportable Pappenheimer Bodies Not Reportable Sickle Cells Not Reportable Target Cells Not Reportable Tear Drop Cells Not Reportable Ovalocytes Not Reportable Helmet Cells Not Reportable Lopez-Cec[place] Bodies Not Reportable [place] Rings Not Reportable Rad Cells Not Reportable Bite Cells Not Reportable Crenated Cell Not Reportable Elliptocytes Not Reportable Acanthocytes (Spur) Not Reportable Rouleaux Not Reportable Hemoglobin C Crystals Not Reportable Schistocytes Not Reportable Malaria parasites Not Reportable Anant Bodies Not Reportable Hem Pathologist Commnt No Sodium 135 L Potassium 3.2 L Chloride 99.3 Carbon Dioxide 18 L Anion Gap 21 BUN 31 H Creatinine 1.9 H Estimated GFR 45 BUN/Creatinine Ratio 16.31 Glucose 106 H POC Glucose 100 Lactic Acid Calcium 8.8 Urine Color Urine Turbidity Urine pH Ur Specific [place] Urine Protein Urine Glucose (UA) Urine Ketones Urine Blood Urine Nitrite Urine Bilirubin Urine Ictotest Urine Urobilinogen Ur Leukocyte Esterase Urine WBC (Auto) Urine RBC (Auto) U Epithel Cells (Auto) Urine Bacteria (Auto) Urine Mucus
[2017-01-30] MEDS: FLAGYL PO SCH ×2 (05:55→14:25)
[2017-01-30] MEDS: NACL 0.9% 1000 ML 1,000 ML IV SCH (06:36)
[2017-01-30] MEDS ORDERED: LEVAQUIN 500MG/100ML 500 MG/100 ML BAG IV SCH ×2 (10:00→12:00)
[2017-01-30] MEDS ORDERED: PROTONIX PO SCH (10:00)
--- NOTE | 2017-01-30 12:55 | Gastroenterology Progress Note ---
Assessment and Plan - Patient Problems (1) Acute gastroenteritis Current Visit: Yes Status: Acute Plan to address problem: Doing well. Appears stable for discharge GI gunter. Will f/u PRN as outpatient. He had a colonoscopy 4 years ago which he reports was normal. (2) Colitis Current Visit: Yes Status: Acute (3) Dehydration Current Visit: Yes Status: Acute (4) Diarrhea Current Visit: Yes Status: Acute Qualifiers: Diarrhea type: unspecified type Qualified Code(s): R19.7 - Diarrhea, unspecified (5) Hyponatremia Current Visit: Yes Status: Acute (6) Renal failure Current Visit: Yes Status: Acute Qualifiers: Renal failure chronicity: acute Acute renal failure type: unspecified Chronic kidney disease stage: C Qualified Code(s): N17.9 - Acute kidney failure, unspecified Subjective Date of service: 01/30/17 Principal diagnosis: acute gastroenteritis Interval history: The patient reports feeling well, eating and feel well enough go home. Objective - Constitutional Vitals: Temp Pulse Resp BP Pulse Ox 98.1 F 74 20 130/74 98 01/30/17 08:00 01/30/17 08:00 01/30/17 08:00 01/30/17 08:00 01/30/17 08:00 General appearance: no acute distress - EENT ENT: hearing intact, clear oral mucosa - Respiratory Respiratory effort: normal Respiratory: bilateral: CTA - Cardiovascular Rhythm: regular - Gastrointestinal General gastrointestinal: Present: soft, non-tender, non-distended, normal bowel sounds - Labs CBC & Chem 7: 01/29/17 07:03 01/29/17 07:03 Labs: Laboratory Results - last 24 hr 01/29/17 01/29/17 01/29/17 12:22 16:36 21:32 POC Glucose 100 110 H 103 01/30/17 01/30/17 06:25 12:10 POC Glucose 88 77
--- NOTE | 2017-01-30 15:47 | Discharge Summary ---
Providers - Providers Date of Admission: 01/28/17 11:08 Date of discharge: 01/30/17 Attending physician: LANDON GUNTER 01/28/17 15:01 Consult to Physician [CONS] Routine Consulting Provider: MARIAMA GANDHI Reason For Exam: Acute Kidney Injury Place consult to:: Nephrology Notified:: n Primary care physician: [employer]GER [employer] Hospitalization Condition: Stable Hospital course: Patient is a 51-year-old man w/o any chronic medical problems who presents with nausea and diarrhea. CT abdomen and pelvis without contrast reported as subtle ascending colitis and gastroenteritis in an appropriate clinical setting, please correlate, with few other incidential findings... -Sepsis due to colitis, present on admission: Blood culture pending, GI following, on flagyl, given iv zosyn in ED on admission -UTI, present on admission: Added urine culture but he was already started on antibiotics, add sq levaquin -Diarrhea: C. difficile pending, I spoke to the lab who never got the sample yesterday then I spoke with nursing to re-collect -ARF, renal tubule stasis, poa, improved, cr went from 2.4 to 1.9: continue to monitor -Hypokalemia due to diarrhea: Replace and monitor closely -DVT prophylaxis: added sq heparin per GI, Dr. Perez: "(1) Acute gastroenteritis Current Visit: Yes Status: Acute Plan to address problem: Doing well. Appears stable for discharge GI gunter. Will f/u PRN as outpatient. He had a colonoscopy 4 years ago which he reports was normal. (2) Colitis Current Visit: Yes Status: Acute" I spoke with Micro, await c, diffe results. I should be ready in 2 hours. Pt refused urine culture I d/w Dr. Perez, patient can go home on empiric flagyl x 10 days but the issue is who going to follow up the c.diffe--->negative Disposition: DC-01 TO HOME OR SELFCARE Time spent for discharge: 35 minutes Core Measure Documentation - Palliative Care Palliative Care/ Comfort Measures: Not Applicable - Core Measures Any of the following diagnoses?: none - VTE Discharge Requirements Deep Vein Thrombosis/Pulmonary Embolism Present on Admission: No Has pt received <5 days of overlap therapy or INR<2.0: No Anticoagulant overlap therapy prescribed at discharge: No Contraindication No Overlap Therapy order at DC: Not Indicated Exam - Physical Exam Narrative exam: GEN: WDWN, NAD, AWAKE, ALERT, ORIENTATED x 3 HEENT: NCAT, PERRL, EOMI, OP CLEAR NECK: SUPPLE, NO THYROMEGALY, NO JVD, NO LAD CVS: Regular rr, NORMAL S1S2 LUNGS/CHEST: CTA B, NORMAL CHEST EXPANSION B, GOOD AIR ENTRY B ABD: SOFT, NTND, GBS, NO REBOUND OR GUARDING MSK: FROM X 4 EXTREMITIES NEURO: CN 2-12 GROSSLY INTACT, NO FOCAL DEFICITS PSY: CALM - Constitutional Vitals: Temp Pulse Resp BP Pulse Ox 98.1 F 74 20 130/74 98 01/30/17 08:00 01/30/17 08:00 01/30/17 08:00 01/30/17 08:00 01/30/17 08:00 Plan Activity: other (no strenous activites until cleared by PCP. ) Diet: regular Follow up with: DIONY HILL MD [Primary Care Provider] - 3-5 Days CLAIRE PEREZ MD [Staff Physician] - 7 Days
[2017-01-30 18:11] VITALS: BP 116/68
[2017-01-30] MEDS ORDERED: HEPARIN SUB-Q SCH (22:00)
[2017-01-31] MEDS ORDERED: LEVAQUIN 500MG/100ML 500 MG/100 ML BAG IV SCH (10:00)
== END 2017-01-30 19:36 | disposition home or self-care (01) | DRG 871 ==
LOC: ED 02:57 → 4A 11:08 → 3A 01-29 10:42
PROVIDERS: ADMIT Internal Medicine; ATTEND Internal Medicine
PROC: 3E0234Z Introduction of Serum, Toxoid and Vaccine into Muscle, Percutaneous Approach (ICD-10-PCS; principal; 2017-01-28)
DX: A41.9 Sepsis, unspecified organism (principal); G93.41 Metabolic encephalopathy; N17.0 Acute kidney failure with tubular necrosis; K92.2 Gastrointestinal hemorrhage, unspecified; N17.9 Acute kidney failure, unspecified; E87.1 Hypo-osmolality and hyponatremia; N39.0 Urinary tract infection, site not specified; E87.6 Hypokalemia; K52.9 Noninfective gastroenteritis and colitis, unspecified; E86.0 Dehydration; Z23 Encounter for immunization; Z87.891 Personal history of nicotine dependence; F10.10 Alcohol abuse, uncomplicated; Z82.3 Family history of stroke; N18.3 Chronic kidney disease, stage 3 (moderate)
CPT/HCPCS: 36415; 74020; 74176; 76770; 80048; 80053; 81001; 82140; 82962; 83036; 83690; 83735; 85007; 85014; 85018; 85025; 85610; 85730; 86850; 86900; 86901; 87040; 87045; 87493; 90732; 93005; 93010; 96361; 96365; 96375; C9113; J1956; J2270; J2543; J7030